=== PATIENT | female | born 1975 ===

== ENCOUNTER 2017-07-26 13:12 | Outpatient (CLI) | payer OTHER ==
[~2017-07-26 13:12] MED LIST: ANAPROX275 MG; AUGMENTIN1 TAB.CHEW; BUCALSEP SPRAY30 ML MM; CLARINEX-D 11 BOTTLE; PHENAGIL CH TA1 EACH PO
== END 2017-07-26 13:22 | disposition home or self-care (01) ==
LOC: RAD 13:12
DX: M12.9 Arthropathy, unspecified (principal); M19.90 Unspecified osteoarthritis, unspecified site; M46.47 Discitis, unspecified, lumbosacral region

== ENCOUNTER 2019-11-23 14:03 | Outpatient (CLI) | payer OTHER | END 2019-11-23 14:12 | disposition home or self-care (01) | LOC: MAMO-SONO 14:03 | PROVIDERS: ATTEND Obstetrics & Gynecology Maternal & Fetal Medicine | DX: Z12.31 Encounter for screening mammogram for malignant neoplasm of breast (principal); N60.11 Diffuse cystic mastopathy of right breast; N63.10 Unspecified lump in the right breast, unspecified quadrant; N63.20 Unspecified lump in the left breast, unspecified quadrant; N64.4 Mastodynia ==